=== PATIENT | male | born 1975 | race Caucasian/White ===

== ENCOUNTER 2016-08-08 11:12 | Emergency (ER) | payer MEDICAID ==
[~2016-08-08] VITALS: Ht 154.9 cm; Wt 56.8 kg
[2016-08-08 11:15] VITALS: Ht 154.9 cm; Wt 56.8 kg
[2016-08-08] MEDS ORDERED: SSD1C20 TOP (12:37)
[2016-08-08] MEDS ORDERED: KEN25O TOP (12:37)
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
== END 2016-08-08 12:50 | disposition home or self-care (01) ==
LOC: FTE 11:12
DX: Z48.00 Encounter for change or removal of nonsurgical wound dressing (principal)
CPT/HCPCS: 99284

== ENCOUNTER 2016-09-30 09:45 | Emergency (ER) | payer MEDICAID ==
[~2016-09-30] VITALS: Wt 54.5 kg
[~2016-09-30 09:45] MED LIST: KEN25O TOP; SSD1C20 TOP
[2016-09-30] MEDS ORDERED: MUPI22OI2 TOP (10:21)
[2016-09-30] MEDS ORDERED: CLIN-73 PO (10:21)
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
== END 2016-09-30 10:33 | disposition home or self-care (01) ==
LOC: FTE 09:45
DX: H60.02 Abscess of left external ear (principal); F17.210 Nicotine dependence, cigarettes, uncomplicated
CPT/HCPCS: 99284